=== PATIENT | male | born 1965 | race Caucasian/White ===

== ENCOUNTER 2018-01-13 09:52 | Inpatient (IN) ==
[2018-01-13] MEDS ORDERED: GLUCAGON 1 MG VIAL IM PRN (11:38)
[2018-01-13] MEDS ORDERED: SODIUM BICARB INJ 100 MEQ in STERILE WATER INJ 400 ML IV PRN (11:38)
[2018-01-13] MEDS ORDERED: DEXTROSE 50% 25 GM/50 ML VIAL IV PRN ×3 (11:38)
[2018-01-13] MEDS ORDERED: MORPHINE 4 MG/1 ML VIAL IV PRN (11:38)
[2018-01-13] MEDS ORDERED: SODIUM CHLORIDE 0.9% 1,000 ML IV SCH (12:00)
[2018-01-13 12:17] LABS: Basophils # 0.1 10*3/uL (0.0-0.2); Basophils % 0.3 % (0.0-0.8); Hematocrit 37.8 VOL% (42.0-52.0); Hemoglobin 11.9 GM/DL (14.0-18.0); Immature Granulocytes % 4.2 %; Immature Granulocytes Absolute 1.65 #; Lymphocytes # 1.1 10*3/uL (1.4-4.0); Lymphocytes % 2.7 % (21.2-54.2); Mean Corpuscular HGB Conc 31.5 GM/DL (32-36); Mean Corpuscular Hemoglobin 29 PG (27-34); Mean Corpuscular Volume 90.6 FL (87-102); Mean Platelet Volume 9.9 FL (9.6-12.0); Monocytes # 0.9 10*3/uL (0.11-0.8); Monocytes % 2.4 % (1.7-12.7); Neutrophils # 35.8 10*3/uL (1.4-7.4); Neutrophils % 90.4 % (38.7-73.9); Platelet Count 377 T/CUMM (130-400); Red Blood Count 4.17 MC/CUMM (3.8-5.5); Red Cell Distribution Width 13.2 % (9.3-17.3); White Blood Count 39.6 T/CUMM (4-12)
[2018-01-13] MEDS ORDERED: MEROPENEM 500 MG in SYRINGE 1 EACH IV SCH (12:30)
[2018-01-13 12:38] LABS: Band Neutrophils 1 % (0-10); Hypersegmented Neutrophil 1+; Lymphocytes 3 % (20-55); Platelet Estimate Adequate; Poikilocytosis Slight; Segmented Neutrophils 92 % (50-85); Total Cells Counted 100
[2018-01-13 12:49] LABS: Calcium 8.2 MG/DL (8.5-10.1); Osmolality,Calculated 295.3 MOS/KG (273-304)
[2018-01-13 12:51] LABS: Alanine Aminotransferase < 9 U/L (16-61); Albumin 1.6 G/DL (3.4-5.0); Alkaline Phosphatase 179 U/L (45-117); Aspartate Amino Transferase 10 U/L (0-37); Blood Urea Nitrogen 18 MG/DL (7-18); Calcium 8.3 MG/DL (8.5-10.1); Glucose 328 MG/DL (74-106); Osmolality,Calculated 295.3 MOS/KG (273-304); Sodium 141 MMOL/L (136-145); Total Protein 5.6 G/DL (6.4-8.3)
[2018-01-13] MEDS ORDERED: INSULIN REGULAR 100 UNIT/ML IV ONE ×2 (12:54→15:48)
[2018-01-13] MEDS: POTASSIUM CHLORIDE RIDER 10 MEQ in PREMIX 1 EACH IV PRN ×4 (13:10→21:40)
[2018-01-13 13:14] LABS: ABG Base Excess -4.8 MMOL/L (-2.5-2.5); ABG HCO3 20.4 MMOL/L (20-26); ABG Oxygen Saturation 95.6 % (95-100); ABG PCO2 29.1 MM HG (35-48); ABG PH 7.413 (7.35-7.45); ABG PO2 75.3 MM HG (80-95); ABG TCO2 16.5 MMOL/L (23-27)
[2018-01-13] MEDS: VANCOMYCIN INJ 1,000 MG in SODIUM CHLORIDE 0.9% 250 ML IV SCH ×2 (13:20→22:31)
[2018-01-13] MEDS: INSULIN LISPRO 100 UNIT/ML SUBCUT SCH ×3 (13:20→20:46)
[2018-01-13] MEDS: PANTOPRAZOLE 40 MG VIAL IV SCH ×2 (13:28→20:34)
[2018-01-13] MEDS ORDERED: BUPIVACAINE SPINAL 0.75% 2 ML AMP SPINAL ONE (13:38)
[2018-01-13] MEDS ORDERED: INSULIN REGULAR 100 UNIT/ML ONE (15:29)
[2018-01-13] MEDS ORDERED: PROPOFOL 200 MG/20 ML VIAL IV ONE (15:29)
[2018-01-13] MEDS ORDERED: fentaNYL 100 MCG/2 ML VIAL ONE (15:30)
[2018-01-13] MEDS ORDERED: MIDAZOLAM 2 MG/2 ML VIAL ONE (15:30)
[2018-01-13] MEDS ORDERED: MEPERIDINE 25 MG/1 ML VIAL IV PRN (15:47)
[2018-01-13] MEDS ORDERED: ONDANSETRON 4 MG/2 ML VIAL IV PRN (15:47)
[2018-01-13] MEDS ORDERED: HYDROmorphone 2 MG/1 ML VIAL IV PRN (15:47)
[2018-01-13 15:51] LABS: Apearance,Urine Slightly Hazy (Clear); Urine Color Yellow (Yellow)
[2018-01-13 15:52] LABS: Glucose,Urine (UA) 150 mg/dL (Negative); Protein,Urine 30 MG/DL
[2018-01-13 15:53] LABS: Bilirubin,Urine Negative (Negative); Ketones,Urine 300 mg/dL (Negative); Nitrite,Urine Negative (Negative)
[2018-01-13 15:54] LABS: Blood, Urine Negative (Negative); Urine Urobilinogen 0.2 EU/DL (0.2-1.0)
[2018-01-13 16:05] LABS: Calcium 7.7 MG/DL (8.5-10.1); Osmolality,Calculated 294.1 MOS/KG (273-304); Potassium 3.4 MMOL/L (3.5-5.1)
[2018-01-13] MEDS ORDERED: INSULIN LISPRO 100 UNIT/ML SUBCUT SCH (16:30)
[2018-01-13] MEDS: PIPERACILLIN/TAZOBACTAM 3,375 MG in SODIUM CHLORIDE 0.9% 100 ML IV SCH (17:00)
[2018-01-13] MEDS: SODIUM CHLORIDE 0.45% 1,000 ML IV SCH (17:00)
[2018-01-13 18:10] LABS: Alanine Aminotransferase 10 U/L (16-61); Albumin 1.4 G/DL (3.4-5.0); Alkaline Phosphatase 148 U/L (45-117); Aspartate Amino Transferase 6 U/L (0-37); Bilirubin,Total < 0.39 MG/DL (0.2-1.0); Blood Urea Nitrogen 18 MG/DL (7-18); Calcium 7.6 MG/DL (8.5-10.1); Glucose 263 MG/DL (74-106); Osmolality,Calculated 293.1 MOS/KG (273-304); Potassium 3.4 MMOL/L (3.5-5.1); Sodium 142 MMOL/L (136-145); Total Protein 4.8 G/DL (6.4-8.3)
[2018-01-13 18:24] LABS: Hematocrit 32.9 VOL% (42.0-52.0); Hemoglobin 10.7 GM/DL (14.0-18.0)
[2018-01-13 19:01] LABS: Calcium 7.4 MG/DL (8.5-10.1); Osmolality,Calculated 289.3 MOS/KG (273-304); Potassium 3.4 MMOL/L (3.5-5.1)
[2018-01-13] MEDS: ONDANSETRON 4 MG/2 ML VIAL IV PRN (20:32)
[2018-01-13] MEDS: HYDROmorphone 2 MG/1 ML VIAL IV PRN (20:38)
[2018-01-13] MEDS ORDERED: ENOXAPARIN 40 MG/0.4 ML SYRINGE SUBCUT SCH (21:00)
[2018-01-13] MEDS ORDERED: INSULIN GLARGINE 100 UNIT/ML SUBCUT SCH (21:00)
[2018-01-14 00:07] LABS: Calcium 7.6 MG/DL (8.5-10.1); Osmolality,Calculated 284.4 MOS/KG (273-304); Potassium 3.9 MMOL/L (3.5-5.1)
[2018-01-14] MEDS: HYDROmorphone 2 MG/1 ML VIAL IV PRN ×2 (00:40→04:58)
[2018-01-14] MEDS: ONDANSETRON 4 MG/2 ML VIAL IV PRN ×5 (00:43→20:09)
[2018-01-14] MEDS: INSULIN LISPRO 100 UNIT/ML SUBCUT SCH ×5 (01:37→20:15)
[2018-01-14] MEDS: PIPERACILLIN/TAZOBACTAM 3,375 MG in SODIUM CHLORIDE 0.9% 100 ML IV SCH ×3 (01:38→16:04)
[2018-01-14 01:58] LABS: Hematocrit 33.9 VOL% (42.0-52.0); Hemoglobin 11.2 GM/DL (14.0-18.0)
[2018-01-14] MEDS: SODIUM CHLORIDE 0.45% 1,000 ML IV SCH ×3 (05:18→20:15)
[2018-01-14] MEDS: VANCOMYCIN INJ 1,000 MG in SODIUM CHLORIDE 0.9% 250 ML IV SCH ×2 (06:26→14:12)
[2018-01-14 07:00] LABS: Basophils # 0.1 10*3/uL (0.0-0.2); Basophils % 0.2 % (0.0-0.8); Hematocrit 31.5 VOL% (42.0-52.0); Hemoglobin 10.4 GM/DL (14.0-18.0); Immature Granulocytes % 5.1 %; Immature Granulocytes Absolute 1.08 #; Lymphocytes # 1.3 10*3/uL (1.4-4.0); Mean Corpuscular Hemoglobin 29 PG (27-34); Mean Corpuscular Volume 87.3 FL (87-102); Mean Platelet Volume 10.2 FL (9.6-12.0); Monocytes % 4.8 % (1.7-12.7); Neutrophils # 17.6 10*3/uL (1.4-7.4); Neutrophils % 83.9 % (38.7-73.9); Platelet Count 339 T/CUMM (130-400); Red Blood Count 3.61 MC/CUMM (3.8-5.5); Red Cell Distribution Width 13.3 % (9.3-17.3)
[2018-01-14 07:36] LABS: Band Neutrophils 2 % (0-10); Lymphocytes 5 % (20-55); Segmented Neutrophils 85 % (50-85); Total Cells Counted 100
[2018-01-14 07:37] LABS: Giant Platelets Few; Hypochromasia 1+; Ovalocytes Slight; Platelet Estimate Adequate
[2018-01-14] MEDS ORDERED: HYDROmorphone 2 MG/1 ML VIAL IV PRN (08:06)
[2018-01-14 08:34] LABS: Calcium 7.7 MG/DL (8.5-10.1); Osmolality,Calculated 282.4 MOS/KG (273-304); Potassium 3.8 MMOL/L (3.5-5.1)
[2018-01-14] MEDS: POTASSIUM PHOS/SOD PHOS 250 MG TABLET PO SCH ×3 (08:36→16:04)
[2018-01-14] MEDS: PANTOPRAZOLE 40 MG VIAL IV SCH ×2 (08:38→20:11)
[2018-01-14] MEDS ORDERED: PANTOPRAZOLE 40 MG TABLET PO SCH (09:00)
[2018-01-14] MEDS: MORPHINE 4 MG/1 ML VIAL IV PRN ×4 (09:15→20:04)
[2018-01-14] MEDS: POTASSIUM CHLORIDE RIDER 10 MEQ in PREMIX 1 EACH IV PRN ×2 (09:57→11:19)
[2018-01-14 12:58] LABS: Hematocrit 31.9 VOL% (42.0-52.0); Hemoglobin 10.4 GM/DL (14.0-18.0)
[2018-01-14] MEDS: BACITRACIN OINT 0.9 GM PACK TOP SCH (14:12)
[2018-01-14 17:47] LABS: Hematocrit 30.5 VOL% (42.0-52.0); Hemoglobin 9.9 GM/DL (14.0-18.0)
[2018-01-14] MEDS: INSULIN GLARGINE 100 UNIT/ML SUBCUT SCH (20:14)
[2018-01-14] MEDS: VANCOMYCIN INJ 1,250 MG in SODIUM CHLORIDE 0.9% 250 ML IV SCH (21:29)
[2018-01-15] MEDS: MORPHINE 4 MG/1 ML VIAL IV PRN ×6 (00:05→21:32)
[2018-01-15] MEDS: ONDANSETRON 4 MG/2 ML VIAL IV PRN ×2 (00:09→04:13)
[2018-01-15] MEDS: PIPERACILLIN/TAZOBACTAM 3,375 MG in SODIUM CHLORIDE 0.9% 100 ML IV SCH ×3 (00:11→17:16)
[2018-01-15 00:50] LABS: Hematocrit 29.7 VOL% (42.0-52.0); Hemoglobin 9.9 GM/DL (14.0-18.0)
[2018-01-15 00:51] LABS: Basophils % 0.2 % (0.0-0.8); Eosinophils % 0.1 % (0.00-10.9); Hematocrit 29.6 VOL% (42.0-52.0); Hemoglobin 9.5 GM/DL (14.0-18.0); Immature Granulocytes % 6.3 %; Immature Granulocytes Absolute 0.93 #; Lymphocytes # 1.5 10*3/uL (1.4-4.0); Lymphocytes % 10.3 % (21.2-54.2); Mean Corpuscular HGB Conc 32.1 GM/DL (32-36); Mean Corpuscular Hemoglobin 29 PG (27-34); Mean Corpuscular Volume 89.4 FL (87-102); Mean Platelet Volume 9.9 FL (9.6-12.0); Monocytes # 0.9 10*3/uL (0.11-0.8); Monocytes % 5.7 % (1.7-12.7); Neutrophils # 11.5 10*3/uL (1.4-7.4); Neutrophils % 77.4 % (38.7-73.9); Platelet Count 282 T/CUMM (130-400); Red Blood Count 3.31 MC/CUMM (3.8-5.5); Red Cell Distribution Width 13.3 % (9.3-17.3); White Blood Count 14.9 T/CUMM (4-12)
[2018-01-15 01:23] LABS: Calcium 7.3 MG/DL (8.5-10.1); Osmolality,Calculated 278.4 MOS/KG (273-304); Potassium 3.3 MMOL/L (3.5-5.1)
[2018-01-15 01:37] LABS: Band Neutrophils 5 % (0-10); Lymphocytes 14 % (20-55); Nucleated Red Blood Cells 1 (0-5); Platelet Estimate Normal; Segmented Neutrophils 76 % (50-85); Total Cells Counted 100
[2018-01-15] MEDS: POTASSIUM CHLORIDE RIDER 10 MEQ in PREMIX 1 EACH IV PRN ×4 (02:07→06:44)
[2018-01-15] MEDS ORDERED: CALCIUM GLUCONATE 2,000 MG in SODIUM CHLORIDE 0.9% 100 ML IV ONE (03:15)
[2018-01-15] MEDS: VANCOMYCIN INJ 1,250 MG in SODIUM CHLORIDE 0.9% 250 ML IV SCH ×3 (05:02→21:30)
[2018-01-15] MEDS: SODIUM CHLORIDE 0.45% 1,000 ML IV SCH ×3 (05:45→21:30)
[2018-01-15 06:56] LABS: Albumin 1.5 G/DL (3.4-5.0); Bilirubin,Direct 0.16 MG/DL (0.0-0.20); Bilirubin,Indirect 0.6 MG/DL (0.0-1.0); Bilirubin,Total 0.8 MG/DL (0.2-1.0); Total Protein 5.3 G/DL (6.4-8.3)
[2018-01-15] MEDS: INSULIN LISPRO 100 UNIT/ML SUBCUT SCH ×4 (08:20→21:32)
[2018-01-15] MEDS: PANTOPRAZOLE 40 MG VIAL IV SCH ×2 (09:11→21:32)
[2018-01-15] MEDS: BACITRACIN OINT 0.9 GM PACK TOP SCH (09:12)
[2018-01-15] MEDS ORDERED: PROPOFOL 200 MG/20 ML VIAL IV ONE (11:44)
[2018-01-15] MEDS ORDERED: LIDOCAINE 100 MG/5 ML SYRINGE ONE (11:44)
[2018-01-15] MEDS: FLUCONAZOLE INJ 200 MG in PREMIX 1 EACH IV SCH (14:30)
[2018-01-15] MEDS: INSULIN GLARGINE 100 UNIT/ML SUBCUT SCH (21:31)
[2018-01-16] MEDS: PIPERACILLIN/TAZOBACTAM 3,375 MG in SODIUM CHLORIDE 0.9% 100 ML IV SCH ×2 (00:20→09:01)
[2018-01-16] MEDS: MORPHINE 4 MG/1 ML VIAL IV PRN ×5 (00:25→21:31)
[2018-01-16] MEDS: SODIUM CHLORIDE 0.45% 1,000 ML IV SCH ×3 (04:43→21:32)
[2018-01-16] MEDS: VANCOMYCIN INJ 1,250 MG in SODIUM CHLORIDE 0.9% 250 ML IV SCH ×2 (04:44→05:29)
[2018-01-16 06:27] LABS: Basophils % 0.3 % (0.0-0.8); Eosinophils % 0.1 % (0.00-10.9); Hematocrit 31.3 VOL% (42.0-52.0); Hemoglobin 9.9 GM/DL (14.0-18.0); Immature Granulocytes % 6.2 %; Immature Granulocytes Absolute 0.68 #; Lymphocytes # 1.2 10*3/uL (1.4-4.0); Mean Corpuscular HGB Conc 31.6 GM/DL (32-36); Mean Corpuscular Hemoglobin 28 PG (27-34); Mean Corpuscular Volume 88.7 FL (87-102); Mean Platelet Volume 10.1 FL (9.6-12.0); Monocytes # 0.6 10*3/uL (0.11-0.8); Monocytes % 5.7 % (1.7-12.7); Neutrophils # 8.4 10*3/uL (1.4-7.4); Neutrophils % 76.7 % (38.7-73.9); Platelet Count 271 T/CUMM (130-400); Red Blood Count 3.53 MC/CUMM (3.8-5.5); Red Cell Distribution Width 13.2 % (9.3-17.3); White Blood Count 10.9 T/CUMM (4-12)
[2018-01-16 06:56] LABS: Band Neutrophils 1 % (0-10); Giant Platelets Few; Hypochromasia 1+; Lymphocytes 11 % (20-55); Ovalocytes Slight; Platelet Estimate Adequate; Segmented Neutrophils 84 % (50-85); Total Cells Counted 100
[2018-01-16 07:08] LABS: Calcium 7.7 MG/DL (8.5-10.1); Osmolality,Calculated 270.7 MOS/KG (273-304); Potassium 3.6 MMOL/L (3.5-5.1)
[2018-01-16] MEDS: BACITRACIN OINT 0.9 GM PACK TOP SCH (09:01)
[2018-01-16] MEDS: PANTOPRAZOLE 40 MG VIAL IV SCH ×2 (09:01→21:30)
[2018-01-16] MEDS: INSULIN LISPRO 100 UNIT/ML SUBCUT SCH ×4 (09:04→21:38)
[2018-01-16] MEDS: FLUCONAZOLE INJ 200 MG in PREMIX 1 EACH IV SCH (13:45)
[2018-01-16] MEDS: ONDANSETRON 4 MG/2 ML VIAL IV PRN ×2 (17:37→21:30)
[2018-01-16] MEDS: INSULIN GLARGINE 100 UNIT/ML SUBCUT SCH (21:31)
[2018-01-17] MEDS: MORPHINE 4 MG/1 ML VIAL IV PRN ×5 (03:32→18:03)
[2018-01-17] MEDS: SODIUM CHLORIDE 0.45% 1,000 ML IV SCH ×2 (05:14→15:46)
[2018-01-17] MEDS: BACITRACIN OINT 0.9 GM PACK TOP SCH (09:05)
[2018-01-17] MEDS: INSULIN LISPRO 100 UNIT/ML SUBCUT SCH ×4 (09:19→21:12)
[2018-01-17] MEDS: PANTOPRAZOLE 40 MG VIAL IV SCH ×2 (09:19→20:35)
[2018-01-17] MEDS: FLUCONAZOLE INJ 200 MG in PREMIX 1 EACH IV SCH (14:48)
[2018-01-17] MEDS: INSULIN GLARGINE 100 UNIT/ML SUBCUT SCH (21:07)
[2018-01-18] MEDS: MORPHINE 4 MG/1 ML VIAL IV PRN ×2 (01:23→04:48)
[2018-01-18] MEDS: SODIUM CHLORIDE 0.45% 1,000 ML IV SCH (01:29)
[2018-01-18] MEDS ORDERED: BISACODYL 10 MG SUPP RECTAL PRN (03:27)
[2018-01-18] MEDS: INSULIN LISPRO 100 UNIT/ML SUBCUT SCH ×2 (08:14→11:38)
[2018-01-18] MEDS: PANTOPRAZOLE 40 MG VIAL IV SCH (09:29)
[2018-01-18] MEDS: BACITRACIN OINT 0.9 GM PACK TOP SCH (09:30)
[2018-01-18] MEDS ORDERED: LORazepam 2 MG/1 ML VIAL IV ONE (10:56)
[2018-01-18 11:54] VITALS: BP 120/69
== END 2018-01-18 13:09 | disposition home or self-care (01) | DRG 853 ==
LOC: N.5E 11:16 → SUATTDRO 11:16
PROVIDERS: ADMIT Internal Medicine; ATTEND Internal Medicine